=== PATIENT | female | born 1950 | race Two or more races ===

== ENCOUNTER 2024-03-10 10:10 | Emergency (ER) | payer OTHER, SELFPAY ==
[2024-03-10 10:11] VITALS: BMI 28.3
[2024-03-10 10:34] VITALS: BP 142/72; PULSE 113; RESP 19; TEMP 37.8; O2SAT 96; BMI 26.4
--- NOTE | 2024-03-10 10:39 | XR_ITS ---
Examination: PA lateral chest 2 views TECHNIQUE: Upright PA lateral chest 2 views Exam date and time: March 10, 2024 1107 hours Comparison February 01, 2023 INDICATIONS: Coughing beginning 2 days ago. FINDINGS: Minimal accentuation basilar bronchovascular disease No lobar pneumonia Normal heart size IMPRESSION: Mild basilar bronchitis pattern
[2024-03-10 11:18] VITALS: TEMP 37.8
[2024-03-10] MEDS: ACETAMINOPHEN 500 MG TABLET 1000 MG PO (11:18)
--- NOTE | 2024-03-10 11:53 | PD.EDURI ---
Upper Respiratory Inf. RME/HPI General Chief Complaint: Flu Like Symptoms Stated Complaint: FEVER, COUGH WITH CHEST PAIN AND BODY ACHE Time Seen by Provider: 03/10/24 10:17 Arrival date/time: 03/10/24 10:10 73-year-old female presents emergency department complains of fever, cough, congestion, body aches patient reports symptom started today. Patient is being seen along with her friend who tested positive for flu today. Patient reports no chest pain no shortness of breath Limitations: no limitations Related Data Previous Rx's ?Medication ?Instructions ?Recorded azithromycin 500 mg tablet See Rx Instructions PO .COMPLEX #6 03/10/24 tabs benzonatate 100 mg capsule 100 mg PO TID #14 caps 03/10/24 ibuprofen 600 mg tablet 600 mg PO Q6H #30 tabs 03/10/24 Allergies Allergy/AdvReac Type Severity Reaction Status Date / Time NKA* Allergy Uncoded 03/10/24 10:13 Review of Systems Review of Systems Systems Reviewed: All systems reviewed, normal except as documented Constitutional Constitutional: Reports system reviewed and no additional complaints, except as documented, Reports chills, Reports fever(s) and Denies headache(s) Eyes Eyes: Reports system reviewed and no additional complaints, except as documented and Denies blurry vision ENT Ears, Nose, Mouth, and Throat: Reports system reviewed and no additional complaints, except as documented, Denies headache(s), Denies nasal congestion and Denies nasal discharge Cardiovascular Cardiovascular: Reports system reviewed and no additional complaints, except as documented, Denies chest pain and Denies dyspnea Respiratory Respiratory: Reports system reviewed and no additional complaints, except as documented, Reports chest congestion, Reports cough and Denies dyspnea Gastrointestinal Gastrointestinal: Reports system reviewed and no additional complaints, except as documented and Denies abdominal pain Integumentary/Breasts Skin/Breast: Reports system reviewed and no additional complaints, except as documented and Denies rash Neurologic Neurologic: Reports system reviewed and no additional complaints, except as documented, Reports as per HPI and Denies headache(s) Past Medical History Past Medical History CARDIAC: Negative Congestive Heart Failure RESPIRATORY: Negative Chronic Obstructive Pulmonary Disease (COPD) GENITOURINARY: Negative Renal Disease ENDOCRINE: Negative Diabetes Mellitus Type 1 or Diabetes Mellitus Type 2 Social History SMOKING STATUS: Never smoker ED Exam General Limitations: Present no limitations General appearance: Present alert and in no apparent distress Head Head exam: Present atraumatic, normocephalic and normal inspection Eye Eye exam: Present normal appearance, PERRL and EOMI ENT ENT exam: Present normal exam, normal oropharynx and mucous membranes moist Neck Neck exam: Present normal inspection, full ROM and trachea midline Chest Chest inspection: Present normal inspection and symmetric chest wall rise Respiratory Respiratory exam: Present normal lung sounds bilaterally; Absent respiratory distress, wheezes, stridor or accessory muscle use Cardiovascular Cardiovascular exam: Present regular rate, normal rhythm and normal heart sounds Abdominal Exam Abdominal exam: Present soft and normal bowel sounds; Absent distention, tenderness, guarding, rebound or rigidity Extremities Exam Extremities exam: Present normal inspection and full ROM Back Exam Back exam: Present normal inspection and full ROM Neurological Exam Neurological exam: Present alert, oriented X3, CN II-XII intact, normal gait and reflexes normal; Absent motor sensory deficit Psychiatric Psychiatric exam: Present normal affect and normal mood Skin Skin exam: Present warm, dry, intact and normal color; Absent rash Course Quality Measures none Orders Category Date Time Status Bedside COVID-19 Antigen Test NOW Care 03/10/24 10:39 Completed Bedside Influenza A&B Antigen Test NOW Care 03/10/24 10:39 Completed XR chest 2V Stat Exams 03/10/24 10:39 Completed Acetaminophen Tab [Tylenol ES Tab] Med 03/10/24 10:39 Discontinued 1,000 mg PO X1 ONE Vital Signs Vital signs: Vital Signs Temperature 100.1 F 03/10/24 10:34 Pulse Rate 113 H 03/10/24 10:34 Respiratory Rate 19 03/10/24 10:34 Blood Pressure 142/72 H 03/10/24 10:34 Pulse Oximetry (%) 96 03/10/24 10:34 Oxygen Delivery Method Room Air 03/10/24 10:34 O2 saturation 96% room air within normal limits Upper Respiratory Infection MDM Narrative MDM Narrative:: 73-year-old female presents emergency department complains of fever, cough, congestion, body aches patient reports symptom started today. Patient is being seen along with her friend who tested positive for flu today. Patient reports no chest pain no shortness of breath On exam patient well-appearing patient does not appear ill or toxic and in no acute distress Chest x-ray obtained patient checked for flu and COVID Patient swabs came back negative Chest x-ray no acute pneumonic infiltrates noted Patient discharged home in no distress to follow-up with primary care doctor in the next 24 to 48 hours and for any worsening symptoms to return to the ER immediately Patient data External records reviewed:: [facility] previous records Clinical information provided by:: patient Social determinants that could affect healthcare access:: none Patient has the following chronic illnesses:: See history How is presenting disease/condition affected by chronic disease/condition?: uneffected by Evaluation data The following diagnostics were reviewed and interpreted by me:: lab results and radiology exam(s) Lab and/or radiology exams considered but not ordered:: Labs radiology obtained Interpretation Summary: Reviewed by me Medications / Prescriptions Medications or Prescriptions considered but not ordered:: Given Medication administrations:: Medication Administration History Discontinued Medications Acetaminophen (Acetaminophen 500 Mg Tablet) 1,000 mg PO X1 ONE Stop: 03/10/24 10:40 Last Admin: 03/10/24 11:18 Dose: 1,000 mg Documented By: SL Given Consultations Consultation(s) initiated? (list below): No Diagnosis Upper Respiratory Differential Diagnosis: upper respiratory infection, sinusitis, viral infection, bronchitis, influenza and pharyngitis Most likely diagnosis given after review of the tests above:: URI Admission Indicated Admission indicated?: not indicated Admission Request Was there a request for admission?: No Disposition Plan Disposition Plan: Discharge Discharge Attestation Discharge Attestation: The patient and all family members were given an opportunity to ask questions and understood the discharge instructions. Discharge instructions specifically effects, indications for sooner follow up or return to the emergency department, and the expected course of current diagnosis. Patient condition: Stable Discharge Plan Plan Patient Disposition: HOME (Self Care) Disposition Comment: Stable Prescriptions/Referrals Prescriptions/Med Rec: New benzonatate 100 mg capsule 100 mg PO TID Qty: 14 0RF ibuprofen 600 mg tablet 600 mg PO Q6H Qty: 30 0RF azithromycin 500 mg tablet See Rx Instructions .ROUTE .COMPLEX Qty: 6 0RF Rx Instructions: take 500 mg today (day 1), then 250 mg for 4 days (days 2-5) Referrals: Alo Islas MD ([place]) [Primary Care Provider] - 03/11/24 Problem List Clinical Impression: Bronchitis, Exposure to influenza Patient/Caregiver Discharge Instructions Education Materials: Preventing Common Respiratory ... Additional Instructions: Please follow up with your primary care doctor in the next 24-48hrs for any worsening symptoms return here immediately Print Language: Romansh Stand Alone Forms: [employer] Award Info., Patient Portal Info Letter PA/LICENSE DISTRIBUTOR Supervising Physician PA/LICENSE DISTRIBUTOR Supervising Physician: Dr Soares
== END 2024-03-10 14:13 | disposition home or self-care (01) ==
PROVIDERS: Emergency Provider Emergency Medicine; PCP Family Medicine
DX: J40 Bronchitis, not specified as acute or chronic (principal); Z20.828 Contact with and (suspected) exposure to other viral communicable diseases
CPT/HCPCS: 71046; 87400; 87811; 99283; A9270

== ENCOUNTER 2024-09-07 12:30 | Emergency (ER) | payer OTHER, SELFPAY ==
[2024-09-07 12:50] VITALS: BP 142/76; PULSE 78; RESP 16; TEMP 36.6; O2SAT 97; BMI 25.7
--- NOTE | 2024-09-07 12:57 | EKG_ITS ---
[facility] Test Date: 2024-09-07 Pat Name: JEREMY MOCTEZUMA Department: Room: - Gender: Female [employer] Operator: : 1950 Requested By: Luc Toledo (ANIYA) Order Number: [id number] Reading MD: Luc Toledo (HUB BANDER) Measurements Intervals [place] Rate: 73 P: 56 MS: 142 QRS: 60 QRSD: 89 T: 62 QT: 350 QTc: 388 Interpretive Statements SINUS RHYTHM NONSPECIFIC T-WAVE ABNORMALITY Compared to ECG 10/14/2022 23:16:40 Sinus tachycardia no longer present T-wave abnormality still present /store/S0/[id number].pdf
--- NOTE | 2024-09-07 12:57 | XR_ITS ---
Examination: CT abdomen and pelvis without contrast. Coronal 3-D reconstructions. Sagittal 2-D reconstructions. Date and time of exam:September 07, 2024 1308 hrs. Comparison October 15, 2022 Indications: Mid abdominal pain radiating to the back beginning 2 days ago CTDI: vol (mGy): 7.82 DLP: (mGycm): 362 Technique: Axial images of the abdomen have been obtained, 3 mm slice thickness Intravenous contrast material has not been administered. Low dose protocols were performed. One or more of the following dose reduction techniques were used; automated exposure control, adjustment of the mA and/or KV according to patient size, use of iterative reconstruction technique. Findings: No focal liver or splenic lesions No gallstones No pancreatic or adrenal mass. No renal or ureteral calculi, small right parapelvic cyst Aorta normal size Appendix is fluid-filled and thickened up to 10 mm with possible minimal periappendiceal inflammatory change No diverticulitis Urinary bladder intact Retroverted uterus Moderate osteopenia Impression: The appendix is fluid-filled and thickened up to 10 mm, possible early periappendiceal inflammatory change, no pericecal inflammatory change The appearance should be clinically correlated
--- NOTE | 2024-09-07 12:57 | PD.EDRME ---
Rapid Medical Screening Exam RME Arrival date/time: 09/07/24 12:30 73-year-old female presents to Emergency Department today for complaint of upper abdominal pain and right-sided flank pain Chief Complaint: Abdominal Pain Time Seen by Provider: 09/07/24 12:53 Vital signs: Vital Signs Temperature 97.9 F 09/07/24 12:50 Pulse Rate 78 09/07/24 12:50 Respiratory Rate 16 09/07/24 12:50 Blood Pressure 142/76 H 09/07/24 12:50 Pulse Oximetry (%) 97 09/07/24 12:50 Oxygen Delivery Method Room Air 09/07/24 12:50
[2024-09-07 13:13] LABS: Basophils % (Auto) 0 % (0-2.5); Eosinophils # (Auto) 0.3 Thou/mm3 (0.0-0.5); Eosinophils % (Auto) 3 % (0-10); Hematocrit 35.1 % (36.0-46.0); Hemoglobin 12.2 g/dL (12.0-16.0); Immature Granulocytes % (Auto) 0 % (0-0); Immature Granulocytes Auto 0.02 Thou/mm3 (0.00-0.00); Lymphocytes # (Auto) 2.4 Thou/mm3 (1.0-4.8); Lymphocytes % (Auto) 26 % (10-50); Mean Corpuscular HGB Conc 34.8 g/dl (31.0-37.0); Mean Corpuscular Hemoglobin 29.9 pg (25.0-35.0); Mean Corpuscular Volume 86 fL (80-100); Monocytes # (Auto) 0.6 Thou/mm3 (0.0-0.8); Monocytes % (Auto) 6 % (0-12); Neutrophils # (Auto) 5.7 Thou/mm3 (1.8-7.7); Neutrophils % (Auto) 64 % (37-80); Nucleated Red Blood Cell % 0 /100 WBC (0); Platelet Count 214 Thou/mm3 (140-440); RDW Standard Deviation 42.6 fL (36.4-46.3); Red Blood Count 4.08 Miln/mm3 (4.00-5.20)
[2024-09-07 13:31] LABS: Alanine Aminotransferase 13 U/L (10-49); Albumin, Serum 4.2 gm/dL (3.4-4.8); Albumin/Globulin Ratio 1.9 (1.2-2.2); Alkaline Phosphatase 75 U/L (46-116); Anion Gap 9 (7-16); Aspartate Amino Transferase 20 U/L (0-34); BUN/Creatinine Ratio 18 Ratio (12-20); Bilirubin,Total 0.4 mg/dL (0.3-1.2); Blood Urea Nitrogen 16 mg/dL (9-23); Calcium 8.8 mg/dL (8.3-10.6); Calcium (Corrected) 8.8 mg/dL (8.5-10.1); Chloride 108 mMol/L (98-107); Creatinine (Component) 0.9 mg/dL (0.6-1.3); Globulin 2.2 gm/dL (2.3-3.5); Glucose 112 mg/dL (74-106); Lipase 43 U/L (12-53); Osmolality,Calculated 289 (275-295); Potassium 4.2 mMol/L (3.4-5.1); Sodium 144 mMol/L (136-145); Total Protein 6.4 gm/dL (5.7-8.2); Troponin I < 0.002 ng/mL (0.0-0.045); eGFR > 60 See Note
[2024-09-07 13:54] LABS: Collection Type, Urine Clean Catch
[2024-09-07 14:02] LABS: Bilirubin,Urine Negative (Negative); Blood,Urine 1+ (Negative); Clarity,Urine Clear (Clear/Hazy); Color,Urine Yellow (Lt Yel-Yel); Culture Indicated,Urine Not Indicated; Glucose, Urine Negative (Negative); Ketones,Urine Negative (Negative); Leukocyte Esterase,Urine Positive (Negative); Nitrite,Urine Negative (Negative); PH,Urine 5.5 (5.0-7.0); Protein,Urine Negative (Neg - Trace); RBC,Urine 6 /hpf (0-3); Specific Gravity,Urine 1.032 (1.001-1.035); Squamous Epithelial Cell,Urine 5 /hpf (0-5); Urobilinogen,Urine Negative mg/dL (0.0-1.0); WBC,Urine 1 /hpf (0-5)
[2024-09-07 14:59] VITALS: BP 139/75; PULSE 72; RESP 20; TEMP 36.7; O2SAT 99
--- NOTE | 2024-09-07 15:07 | PD.EDABDPN ---
ED Abdominal Pain RME/HPI General Chief Complaint: Abdominal Pain Stated complaint: PAIN IN ABD & BACK SINCE YESTERDAY Time seen by provider: 09/07/24 12:53 Arrival date/time: 09/07/24 12:30 Source: patient Mode of arrival: ambulatory Limitations: no limitations RME / HPI RME / HPI narrative: 09/07/24 12:30 73-year-old female presents to Emergency Department today for complaint of upper abdominal pain and right-sided flank pain. She is here today with a right sided abdominal pain for 2 days. She denies any nausea or vomiting. No diarrhea. She has no urinary changes. No fevers or chills. She denies any chronic medical illness. Denies any past surgeries. Denies any sick contacts, recent missions, or traveling. She has no other acute complaints MD complaint: abdominal pain Related Data Previous Rx's ?Medication ?Instructions ?Recorded azithromycin 500 mg tablet See Rx Instructions PO .COMPLEX #6 03/10/24 tabs benzonatate 100 mg capsule 100 mg PO TID #14 caps 03/10/24 ibuprofen 600 mg tablet 600 mg PO Q6H #30 tabs 03/10/24 dicyclomine 20 mg tablet 20 mg PO BID #14 tabs 09/07/24 ondansetron 4 mg disintegrating 4 mg PO Q8H #10 tabs 09/07/24 tablet Allergies Allergy/AdvReac Type Severity Reaction Status Date / Time NKA* Allergy Uncoded 09/07/24 12:36 Review of Systems Review of Systems Systems Reviewed: All systems reviewed, normal except as documented ED Exam General Limitations: Present no limitations General appearance: Present alert and in no apparent distress Head Head exam: Present atraumatic Eye Eye exam: Present normal appearance, PERRL and EOMI ENT ENT exam: Present normal exam, normal oropharynx and mucous membranes moist Neck Neck exam: Present normal inspection, full ROM and trachea midline Chest Chest inspection: Present normal inspection and symmetric chest wall rise Respiratory Respiratory exam: Present normal lung sounds bilaterally Cardiovascular Cardiovascular exam: Present regular rate, normal rhythm and normal heart sounds Abdominal Exam Abdominal exam: Present soft, normal bowel sounds and other (She is mildly tender in her right abdomen. No guarding or masses.) Extremities Exam Extremities exam: Present normal inspection and full ROM Back Exam Back exam: Present normal inspection and full ROM Neurological Exam Neurological exam: Present alert, oriented X3 and CN II-XII intact Psychiatric Psychiatric exam: Present normal affect and normal mood Skin Skin exam: Present warm, dry, intact and normal color Course Quality Measures none Orders Category Date Time Status EKG (ED ONLY) *Do not use* NOW Care 09/07/24 12:57 Completed Consult to General Surgery Stat Cons 09/07/24 15:[address] abdomen pelvis wo con Stat Exams 09/07/24 12:57 Completed EKG (ED Only) Stat Exams 09/07/24 12:57 Draft CBC Stat Lab 09/07/24 13:04 Completed Comprehensive Metabolic Panel Stat Lab 09/07/24 13:04 Completed Lipase Stat Lab 09/07/24 13:04 Completed Troponin I Stat Lab 09/07/24 13:04 Completed UA, C/S IF [Urinalysis, C/S if Indicated] Stat Lab 09/07/24 13:49 Completed oxyCODONE/APAP 5/325 [Percocet 5/325] Med 09/07/24 15:04 Discontinued 1 tab PO X1 ONE Vital Signs Vital signs: Vital Signs Temperature 97.9 F 09/07/24 12:50 Pulse Rate 78 09/07/24 12:50 Respiratory Rate 16 09/07/24 12:50 Blood Pressure 142/76 H 09/07/24 12:50 Pulse Oximetry (%) 97 09/07/24 12:50 Oxygen Delivery Method Room Air 09/07/24 12:50 Abdominal Pain MDM MDM Narrative MDM Narrative:: 73-year-old female here today with a 2-day history of right side abdominal pain. She is not point tender in the right lower quadrant. She has no emesis, fever, or urinary complaints. Her work appears essentially unremarkable exception of possible concerns for early appendicitis noted on CT. General surgery was consulted and the patient was evaluated in the ER by Dr. Landaverde. Patient has no peritoneal signs. Vital signs remained stable. Her symptoms improved with therapies here and she feels like she can go home. General surgery does not believe the patient has acute appendicitis. This was discussed with the patient. She states she lives at home with other adults approximately 10 minutes away from the emergency room. She feels safe going home and returning here for any worsening changes. Return precautions were discussed in detail. Patient will be discharged with prescription of Bentyl and Zofran. She agrees return as needed for any worsening pain, fever, or any other emergent concerns. Patient data External records reviewed:: [facility] previous records Clinical information provided by:: patient Social determinants that could affect healthcare access:: none Patient has the following chronic illnesses:: n/a How is presenting disease/condition affected by chronic disease/condition?: exacerbated by Evaluation data The following diagnostics were reviewed and interpreted by me:: lab results, radiology exam(s) and EKG tracing(s) (EKG obtained today at 12:58 PM. EKG reveals normal sinus rhythm at 73 beats minute with no ST changes or dynamic T waves. T waves are flattened.) Lab and/or radiology exams considered but not ordered:: Lactic acid Interpretation Summary: No leukocytosis, metabolic panel is unremarkable. Liver enzymes are within normal limits. Medications / Prescriptions Medications or Prescriptions considered but not ordered:: Not applicable Medication administrations:: Medication Administration History Discontinued Medications Oxycodone/Acetaminophen (Oxycodone/Apap 5/325 Tablet) 1 tab PO X1 ONE Stop: 09/07/24 15:05 Last Admin: 09/07/24 15:12 Dose: 1 tab Documented By: CG See above Consultations Consultation(s) initiated? (list below): No Consultation #1 (Physician, Specialty, Details): Dr. Landaverde of general surgery was consulted and will see the patient in the ER. Time: 15:10 Diagnosis Differential diagnosis abdominal pain: abdominal pain, acute appendicitis, calculus of kidney and constipation Most likely diagnosis given after review of the tests above:: Acute colitis versus gastroenteritis Admission Indicated Admission indicated?: not indicated Admission Request Was there a request for admission?: No Disposition Plan Disposition Plan: Discharge Discharge Attestation Discharge Attestation: The patient and all family members were given an opportunity to ask questions and understood the discharge instructions. Discharge instructions specifically effects, indications for sooner follow up or return to the emergency department, and the expected course of current diagnosis. Patient condition: Stable Discharge Plan Plan Patient Disposition: HOME (Self Care) Patient condition on transfer: Stable Prescriptions/Referrals Prescriptions/Med Rec: New dicyclomine 20 mg tablet 20 mg PO BID Qty: 14 0RF ondansetron 4 mg tablet,disintegrating 4 mg PO Q8H Qty: 10 0RF No Action benzonatate 100 mg capsule 100 mg PO TID Qty: 14 0RF ibuprofen 600 mg tablet 600 mg PO Q6H Qty: 30 0RF azithromycin 500 mg tablet See Rx Instructions .ROUTE .COMPLEX Qty: 6 0RF Rx Instructions: take 500 mg today (day 1), then 250 mg for 4 days (days 2-5) Referrals: Ryan Peace MD [Primary Care Provider] - In 1 week Problem List Clinical Impression: Gastroenteritis Patient/Caregiver Discharge Instructions Education Materials: Understanding Colitis, ED Gastroenteritis, Noninfectious Additional Instructions: Use the provided medications as prescribed. Please have a low threshold for return to the emergency room anytime for any worsening changes including increased pain, fever, or vomiting. Print Language: Botswanan Stand Alone Forms: [employer] Award Info., Patient Portal Info Letter
[2024-09-07] MEDS: oxyCODONE/APAP 5/325 TABLET 1 TAB PO (15:12)
[2024-09-07 16:27] VITALS: BP 151/60; PULSE 63; RESP 15; TEMP 36.7; O2SAT 100
== END 2024-09-07 16:47 | disposition home or self-care (01) ==
PROVIDERS: Nurse Practitioner Primary Care; Emergency Provider Family Medicine; PCP Internal Medicine
DX: K52.9 Noninfective gastroenteritis and colitis, unspecified (principal); R94.31 Abnormal electrocardiogram [ECG] [EKG]
CPT/HCPCS: 36415; 74176; 80053; 81001; 83690; 84484; 85025; 93005; 99284; A9270